=== PATIENT | female | born 1960 | race Caucasian/White ===

== ENCOUNTER 2023-11-27 21:30 | Emergency (ER) | payer OTHER, SELFPAY ==
[2023-11-27 21:37] VITALS: BP 167/68
[2023-11-27 22:06] LABS: % Basophils 0.4 % (0-2); % Eosinophils 2.4 % (0-6); % Immature Granulocytes 0.4 % (0-0.5); % Monocytes 5.2 % (1.7-9.3); % Neutrophils 78.6 % (42.2-75.2); Absolute Eosinophils 0.2 10^3/uL (0-0.7); Absolute Monocytes 0.4 10^3/uL (0.1-0.6); Absolute Neutrophils 6.3 10^3/uL (1.4-6.5); Hematocrit 38.7 % (37.0-47.0); Hemoglobin 13.9 g/dL (12.0-16.0); Mean Corp Hgb Conc. 35.9 g/dL (33.0-37.0); Mean Corpuscular Hgb 30.5 pg (27.0-31.0); Mean Corpuscular Volume 85.1 fL (81.0-99.0); Mean Platelet Volume 9.7 fL (7.4-10.4); Nucleated Red Blood Cells % 0 %; Platelet Count 188 10^3/uL (130-400); Red Blood Cell Count 4.55 10^6/uL (4.20-5.40); Red Cell Dist. Width 12.5 % (11.5-14.5)
[2023-11-27 22:08] VITALS: BP 154/65
[2023-11-27 22:28] LABS: ALT (SGPT) 26 U/L (0-35); AST (SGOT) 30 U/L (14-36); Albumin 3.8 g/dl (3.5-5.0); Alkaline Phosphatase 67 U/L (38-126); Blood Urea Nitrogen 16 mg/dl (7-17); Calcium 8.9 mg/dl (8.4-10.2); Carbon Dioxide 24 mmol/L (22-30); Chloride 103 mmol/L (98-107); Glucose 109 mg/dl (70-99); Potassium 3.3 mmol/L (3.5-5.1); Sodium 138 mmol/L (135-145); Total Bilirubin 0.6 mg/dl (0.2-1.3); Total Protein 6.2 g/dl (6.3-8.2); Troponin I < 0.012 ng/ml; eGFR > 60.00
[2023-11-27 23:00] VITALS: BP 171/68
--- NOTE | 2023-11-27 23:04 | ED.GENMED ---
History of Present Illness
General
Chief Complaint: Chest Pain
Source: patient
Exam Limitations: none
Time Seen by Provider: 11/27/23 21:50
Travel History
Have you had any contact with someone who has COVID-19?: No
Do you have any symptoms of coronavirus? Fever > 100 degrees, chills, cough, shortness of breath, sore throat, loss of taste or smell, muscle aches, or headache?: No
History of Present Illness
History of Present Illness:
This is a 63 year old female that comes in with c/o chest pain. State that around 9pm tonight she started with chest pain and upper abd pain. State that she also had right sided neck pain. States that she was dizzy like her brain was not attached to
her head. . States that this comes in waves. Sates that she felt she had a low grade fever of 99.0 at home and was SOB with the pain. States that she was also nauseated and had a headache yesterday. Denies any chills, vomiting, diarrhea, urinary
burning.
Past History
Past History
ED Past Medical History: Cancer (Breast CA) and CVA (Left hand and leg weakness)
ED Past Surgical History: Other (Left lumpectomy X 2 with Lymph nodes removed)
Social History
Tobacco: Non-smoker
Alcohol: Occasional
Personal:
Living: with family
Review of Systems
Review of Systems
All Other Systems: ROS reviewed and negative except as documented in HPI and ROS
Constitutional: Reports fever (Low grade at 99.0); Denies chills
EENT: Reports no symptoms
Respiratory: Reports trouble breathing (with pain)
Cardiac: Reports chest pain
ABD/GI: Reports abdominal pain (Upper abd) and nausea; Denies vomiting or diarrhea
: Reports no symptoms; Denies dysuria, frequency or urgency
Musculoskeletal: Reports no symptoms
Skin: Reports no symptoms
Neurological: Reports dizzy; Denies headache
Psychiatric: Reports no symptoms
Phy Exam
General Physical Exam
General Presentation: no apparent distress
General age: appears stated age
General Skin: warm and dry
General Habitus: normal
General Mental: alert
General Hydration: appears well hydrated
ENT Exam
ENT Exam: TM's normal, pharynx normal and neck supple
Eye Exam
Eye Exam: EOMI
Cardiovascular Exam
Cardiovascular Exam: regular rate/rhythm, no edema, no murmur and normal peripheral pulses
Pulmonary Exam
Pulmonary Exam: lungs clear, no respiratory distress, no rales, chest non tender, no crackles, no rhonchi, no wheezing and no cough
Gastrointestinal Exam
Gastrointestinal Exam: normal bowel sounds, non tender, soft, no organomegaly, no pulsatile mass and non distended
NIH Stroke Score
Level of Consciousness: 0 - Alert
LOC questions: 0-Answers both correctly
LOC Commands: 0-Performs both correctly
Best Gaze: 0-Normal
Visual Hall: 0=Normal, no visual loss
Facial palsy: 0=Normal, symmetrical
Motor - Right Arm: 0=No drift 10 seconds
Motor - Left Arm: 0=No drift 10 seconds
Motor - Right Le-No drift 5 seconds
Motor - Left Le-No drift 5 seconds
Limb Ataxia: 0-Absent
Sensation: 0-Normal
Best Language: 0-No aphasia
Dysarthria: 0-Normal
Extinction and Inattention: 0-No abnormality
Total Score:: 0
Musculoskeletal Exam
Musculoskeletal Exam: full ROM and no edema
Skin Exam
Skin Exam: normal color, warm/dry, no rash and no petechia
Psychiatric Exam
Psychiatric Exam: normal mood/affect
Scores
Heart Score for Chest Pain Patients
STEMI patient?: No
History: Slightly or Non-Suspicious
ECG: Normal
Age: >45 - <65 years
Risk Factors: No Risk Factors
Troponin: </= Normal Limit
Heart Score for Chest Pain Patients: 1
Heart Score Risk: 2.5% MACE over next 6 weeks
Course
Orders/Labs/Results
Orders:
Orders
11/27/23 21:31
Electrocardiogram (*1) Urgent
Reason for Study: Chest Pain
EKG- Treatment ONCE
11/27/23 21:34
Cardiac Monitoring- Treatment ONCE
IV Insert/Care/Rem.- Treatment PRN
O2 Therapy [RESP] Urgent
Titrate/Wean O2 to maintain O2 sat greater than (%): 90
Special Instructions: Maintain sats >/=90%
Pulse Ox/spot Check [RESP] Urgent
Quantity: 1
Special Instructions: ON ROOM AIR
11/27/23 21:40
Chest [CR Chest - 2 Views ] Urgent
Comment:
Reason For Exam: sob
11/27/23 21:56
Complete Blood Count/With Diff Urgent
Comprehensive Metabolic Panel Urgent
Troponin I Urgent
11/27/23 23:02
EKG- Treatment ONCE
11/27/23 23:03
CT Head W/o Iv Contrast Urgent
Comment: Prior stroke
Reason For Exam: Dizziness
Pantoprazole [Protonix IV] 40 mg IV NOW STA
Sucralfate Suspension [Carafate Suspension] 1 gm PO NOW STA
11/27/23 23:12
Potassium Chloride Powder [Klor-Con] 20 meq PO NOW STA
11/28/23 00:50
Electrocardiogram (*1) Urgent
Reason for Study: Chest Pain
Other Reason for Exam: Repeat with Troponin
11/28/23 01:08
Troponin I Urgent
Abnormal Lab Results
11/27/23
21:56
Absolute Lymphs (auto) 1.0 L 10^3/uL
(1.2-3.4)
Neutrophils % 78.6 H %
(42.2-75.2)
Lymphocytes % 13.0 L %
(20.5-51.1)
Potassium 3.3 L mmol/L
(3.5-5.1)
Glucose 109 H mg/dl
(70-99)
Total Protein 6.2 L g/dl
(6.3-8.2)
11/27/23 21:56
11/27/23 21:56
Potassium slightly low. Glucose nonfasting, Troponin <0.012
Second Troponin <0.012
Vital Signs
Initial and Last Documented VS:
Initial Vital Signs
Temp Pulse Resp BP Pulse Ox
97.1 F 70 19 167/68 98
11/27/23 21:37 11/27/23 21:37 11/27/23 21:37 11/27/23 21:37 11/27/23 21:37
Last Documented Vital Signs
Temp Pulse Resp BP Pulse Ox
97.1 F 72 12 171/68 95
11/27/23 21:37 11/27/23 23:15 11/27/23 23:15 11/27/23 23:00 11/27/23 23:15
MDM/Problems Addressed
Differential Diagnosis Includes:
GERD, Gastritis, [place]
MDM/Problems Addressed:
This is a 63 year old female that comes in with c/o chest pain. States that this started about 9pm and comes in waves. States that she has upper abd discomfort with the chest discomfort and discomfort up into the right sided of the neck.
Will check labs, Chest x-ray and medicate for reflux.
Back into see patient. Sates that she is feeling better after the medication. Explained that her CT of the head is normal along with her chest x-ray. Blood work shows hypokalemia and potassium was given. Will give patient a prescription for Protonix
and have patient follow up with the family doctor. Patient to return with any concerns.
Repeat ECG: rate 68, NSR, Normal axis. Normal QRS, Negative for ischemia. Checked by Dr. Haider.
Chronic conditions affecting care:
NA
Acute Exacerbation and/or Progression of Chronic Illness:
NA
*Radiology
Radiology exam reviewed: radiology read reviewed (CT head- Night hawk- No acute hemorrhage, herniation or hydrocephalus. No calvarial fractures. The visualized paranasal sinuses and mastoid air cells are clear. CHEST- NO ACUTE DISEASE OF THE
CHEST. )
*Pulse Oximetry
Patient hypoxic: no
*EKG
Interpreted by ED Provider?: Yes
Heart Rate: 67
Rate: normal
Rhythm: sinus
[place]: normal axis
Interval: normal interval
QRS Pattern: normal QRS
Ischemia: no ischemia
*Fire Pot Operator Interpretation
Rate: normal
Heart Rate: 67
Rhythm: sinus
*Critical Care Note
Total Time (30-74mins, 75-104mins- exclusive of procedures): Not Applicable
ED Attending Note
-
Portions of this chart may have been created with voice recognition software.� Occasional wrong word or��sound alike� substitutions may have occurred due to the inherent limitations of voice recognition software.
Discharge Plan
Departure
Patient Disposition: Home (Routine Discharge)
Date of Disposition: 11/28/23
Time of Disposition: 02:09
Patient with high blood pressure during this ER visit?: Yes
Condition: Good
Covid-19: Not Applicable
Discharge Problem:
Chest pain due to GERD
Instructions: Acid Reflux and GERD in Adults (DC), Chest Pain PCP Follow Up, BLOOD PRESSURE
Prescriptions:
New
pantoprazole [Protonix] 40 mg tablet,delayed release (DR/EC)
40 mg PO DAILY Qty: 30 0RF
No Action
hydrocodone-acetaminophen 1 TABLET tablet
1 tab PO Q4HPRN PRN (Reason: pain>4/10 take with stool soft) Qty: 20 0RF
Rx Instructions:
alternate with 650 mg Tylenol, do not exceed 3000mg of Tylenol per day
Referrals:
Whitley Casillas, [Family Provider] - Follow up in 2-3 days
Activity Restrictions/Additional Instructions:
As discussed, your blood work shows that your potassium is a little low. You have been given an oral potassium here. Please try eating some banana's daily. Your ECG and both Troponin are normal. Your chest x-ray is normal along with the CT of the
head. This may be all due to reflux. Try and decreased your caffeine intake. You have been given a prescription for Protonix that will help coat your stomach. Follow up with the family doctor for recheck. IF YOU HAVE INCREASED OR CHANGING PAIN, OR
YOU HAVE ANY OTHER CONCERNS PLEASE RETURN TO THE EMERGENCY ROOM
Interventions
Interventions:
*Risk Screen - Suicide Last Done: 11/27/23 21:37
*General Assessment Last Done: 11/27/23 21:37
*Neglect/Abuse Screening Last Done: 11/27/23 21:37
ED- Fall Risk Assessment Last Done: 11/27/23 22:37
*ED COVID-19 Vaccine History Last Done: 11/27/23 21:37
ED- Cardiac Assessment Last Done: 11/27/23 22:00
[2023-11-27] MEDS: KLOR-CON 20 MEQ PO (23:16)
[2023-11-27] MEDS: CARAFATE SUSPENSION 1 GM PO (23:16)
[2023-11-27] MEDS: PROTONIX IV 40 MG IV (23:16)
[2023-11-28] VITALS: BP 171/69
[2023-11-28 01:00] VITALS: BP 156/71
[2023-11-28 02:00] VITALS: BP 149/65
[2023-11-28 02:08] LABS: Troponin I < 0.012 ng/ml
[2023-11-28 02:20] VITALS: BP 140/66
== END 2023-11-28 02:38 | disposition home or self-care (01) ==
LOC: EMR 21:30
PROVIDERS: Student in an Organized Health Care Education/Training Program; EMERGENCY PHYSICIAN Emergency Medicine; FAMILY PHYSICIAN Student in an Organized Health Care Education/Training Program
DX: R07.89 Other chest pain (principal); K21.9 Gastro-esophageal reflux disease without esophagitis; E87.6 Hypokalemia; Z85.3 Personal history of malignant neoplasm of breast; Z86.73 Personal history of transient ischemic attack (TIA), and cerebral infarction without residual deficits
CPT/HCPCS: 99284; 96374; 70450; 71046; 80053; 84484; 85025; 93005

== ENCOUNTER → 2024-01-24 14:58 | Outpatient (REF) | payer OTHER, SELFPAY | LOC: WDC 14:58 | PROVIDERS: ATTENDING PHYSICIAN Student in an Organized Health Care Education/Training Program; OTHER PHYSICIAN Internal Medicine Hematology & Oncology | DX: Z85.3 Personal history of malignant neoplasm of breast (principal); Z12.31 Encounter for screening mammogram for malignant neoplasm of breast | CPT/HCPCS: 77063; 77067 ==

== ENCOUNTER → 2024-11-06 14:38 | Outpatient (REF) | payer OTHER, SELFPAY | LOC: RAD 14:38 | PROVIDERS: ATTENDING PHYSICIAN Internal Medicine Hematology & Oncology | DX: C50.212 Malignant neoplasm of upper-inner quadrant of left female breast (principal) | CPT/HCPCS: 71260; Q9967 ==

== ENCOUNTER → 2025-02-13 12:51 | Outpatient (REF) | payer OTHER, SELFPAY | LOC: RAD 12:51 | PROVIDERS: ATTENDING PHYSICIAN Emergency Medicine | DX: R25.2 Cramp and spasm (principal) | CPT/HCPCS: 93922; 93925 ==

== ENCOUNTER → 2025-03-03 16:23 | Outpatient (REF) | payer OTHER, SELFPAY | LOC: WDC 16:23 | PROVIDERS: ATTENDING PHYSICIAN Internal Medicine Hematology & Oncology; FAMILY PHYSICIAN Emergency Medicine | DX: Z12.31 Encounter for screening mammogram for malignant neoplasm of breast (principal); Z85.3 Personal history of malignant neoplasm of breast; C50.412 Malignant neoplasm of upper-outer quadrant of left female breast; C50.212 Malignant neoplasm of upper-inner quadrant of left female breast | CPT/HCPCS: 77063; 77067 ==